=== PATIENT | male | born 1975 | race Caucasian/White ===

== ENCOUNTER 2021-12-21 16:08 | Inpatient (IN) | payer OTHER ==
[2021-12-21 17:09] VITALS: BMI 29.7
[2021-12-21] MEDS ORDERED: IBUPROFEN 600 MG TABLET (FP) PO PRN (19:34)
[2021-12-21] MEDS ORDERED: LOPERAMIDE HCL 2 MG CAPSULE PO PRN (19:34)
[2021-12-21] MEDS ORDERED: BENZOCAINE/MENTHOL (CHLORASEPTIC ) LOZENGE MM PRN (19:34)
[2021-12-21] MEDS ORDERED: ACETAMINOPHEN 325 MG TABLET (FP) PO PRN ×2 (19:34)
[2021-12-21] MEDS ORDERED: NALOXONE HCL (KLOXXADO) 8 MG SPRAY NS PRN (19:34)
[2021-12-21] MEDS ORDERED: ONDANSETRON *ODT* 4 MG TABLET SL PRN (19:34)
[2021-12-21] MEDS ORDERED: BISMUTH SUBSALICYLATE 524 MG/30 ML PO PRN (19:34)
[2021-12-21] MEDS ORDERED: MAGNESIUM HYDROX 2400MG/30ML ORAL SUSPENSION 30 ML CUP PO PRN (19:34)
[2021-12-21] MEDS ORDERED: MAGNESIUM CITRATE 300 ML BOTTLE PO PRN (19:34)
[2021-12-21] MEDS ORDERED: DICYCLOMINE HCL 10 MG CAPSULE PO PRN (19:34)
[2021-12-21] MEDS ORDERED: NICOTINE 10 MG CARTRIDGE (INHALER) IH PRN (19:34)
[2021-12-21] MEDS ORDERED: NICOTINE POLACRILEX 4 MG GUM BUC PRN (19:34)
[2021-12-21] MEDS ORDERED: IBUPROFEN 400 MG TABLET (FP) PO PRN (19:34)
[2021-12-21] MEDS ORDERED: MAG HYDROX/AL HYDROX/SIMETH 30 ML UNIT-DOSE CUP PO PRN (19:34)
[2021-12-21] MEDS: NICOTINE 21 MG/24 HOURS TOPICAL PATCH TD SCH (21:25)
[2021-12-21] MEDS: MELATONIN 5 MG TABLETS PO SCH (22:13)
[2021-12-21] MEDS: THIAMINE HCL 100 MG TABLET (FP) PO SCH (22:17)
[2021-12-22 10:23] LABS: ALBUMIN 3.1 g/dl (3.4-5.0); CALCIUM 8.5 mg/dL (8.5-10.1)
[2021-12-22 10:25] LABS: BLOOD UREA NITROGEN 12.2 mg/dL (7-18); CREATININE 0.7 mg/dL (0.55-1.3)
[2021-12-22 10:27] LABS: BILIRUBIN,TOTAL 0.3 mg/dL (0.2-1); TOT PROT 6.3 g/dl (6.4-8.2)
[2021-12-22 10:33] LABS: HEMATOCRIT 36.6 % (35.4-49); HEMOGLOBIN 12.2 GM/dL (11.7-16.9); MCH 29.7 pg (25.7-33.7); MCHC 33.3 g/dl (32.0-35.9); MEAN CELL VOLUME 89.1 fl (80-96); MEAN PLT VOLUME 10.8 fl (7.5-11.1); PLATELET COUNT 227 10^3/uL (134-434); RDW 14.2 % (11.9-15.9); WHITE BLOOD COUNT 7.7 K/mm3 (4.0-10.0)
[2021-12-22] MEDS: PRENATAL VITAMINS W/ FOLIC ACID TABLET (FP) PO SCH (10:40)
[2021-12-22] MEDS: NICOTINE 21 MG/24 HOURS TOPICAL PATCH TD SCH (10:40)
[2021-12-22 11:17] LABS: HIV INTERPRETATION NEGATIVE (NEGATIVE)
[2021-12-22] MEDS: MELATONIN 5 MG TABLETS PO SCH (22:27)
[2021-12-22] MEDS: THIAMINE HCL 100 MG TABLET (FP) PO SCH (22:27)
[2021-12-22] MEDS: hydrOXYzine PAMOATE 25 MG CAPSULE (FP) PO PRN (22:27)
[2021-12-22] MEDS: METHOCARBAMOL 500 MG TABLET PO PRN (22:27)
[2021-12-23] MEDS: hydrOXYzine PAMOATE 25 MG CAPSULE (FP) PO PRN (01:30)
[2021-12-23] MEDS ORDERED: methaDONE HCL 10 MG TABLET PO ONE (04:09)
[2021-12-23] MEDS ORDERED: cloNIDine HCL 0.1 MG TABLET PO PRN (06:36)
[2021-12-23] MEDS: AMOX TR/POT CLAV 875MG/125MG TABLETS (FP) PO SCH ×2 (08:00→18:07)
[2021-12-23] MEDS: NICOTINE 21 MG/24 HOURS TOPICAL PATCH TD SCH (10:20)
[2021-12-23] MEDS: PRENATAL VITAMINS W/ FOLIC ACID TABLET (FP) PO SCH (10:20)
[2021-12-23] MEDS: METHOCARBAMOL 500 MG TABLET PO PRN (10:21)
[2021-12-23] MEDS: diazePAM 5 MG TABLET PO PRN ×2 (10:21→22:52)
[2021-12-23] MEDS: MELATONIN 5 MG TABLETS PO SCH (22:51)
[2021-12-23] MEDS: THIAMINE HCL 100 MG TABLET (FP) PO SCH (22:51)
[2021-12-24] MEDS: AMOX TR/POT CLAV 875MG/125MG TABLETS (FP) PO SCH ×2 (07:13→17:34)
[2021-12-24] MEDS ORDERED: methaDONE HCL 10 MG TABLET (FOR DETOX USE ONLY) PO ONE (10:00)
[2021-12-24] MEDS: PRENATAL VITAMINS W/ FOLIC ACID TABLET (FP) PO SCH (11:21)
[2021-12-24] MEDS: METHOCARBAMOL 500 MG TABLET PO PRN (11:24)
[2021-12-24] MEDS: NICOTINE 21 MG/24 HOURS TOPICAL PATCH TD SCH (11:25)
[2021-12-24] MEDS: MELATONIN 5 MG TABLETS PO SCH (22:36)
[2021-12-24] MEDS: THIAMINE HCL 100 MG TABLET (FP) PO SCH (22:36)
[2021-12-25] MEDS: AMOX TR/POT CLAV 875MG/125MG TABLETS (FP) PO SCH (07:11)
[2021-12-25 09:32] VITALS: BP 130/82; PULSE 74; RESP 17; TEMP 97.5
[2021-12-25] MEDS ORDERED: methaDONE HCL 10 MG TABLET (FOR DETOX USE ONLY) PO ONE (10:00)
[2021-12-25] MEDS: NICOTINE 21 MG/24 HOURS TOPICAL PATCH TD SCH (10:16)
[2021-12-25] MEDS: PRENATAL VITAMINS W/ FOLIC ACID TABLET (FP) PO SCH (10:16)
[2021-12-27] MEDS ORDERED: methaDONE HCL 10 MG TABLET (FOR DETOX USE ONLY) PO ONE (10:00)
== END 2021-12-25 11:05 | disposition home or self-care (01) | DRG 773 ==
LOC: YASAS 16:08 → Y3N 20:09 → Y6N 20:15
PROVIDERS: ADMIT Allergy & Immunology; ATTEND Surgery
PROC: HZ2ZZZZ Detoxification Services for Substance Abuse Treatment (ICD-10-PCS; principal; 2021-12-21)
DX: F11.23 Opioid dependence with withdrawal (principal); F14.20 Cocaine dependence, uncomplicated; F12.20 Cannabis dependence, uncomplicated; F17.210 Nicotine dependence, cigarettes, uncomplicated; F19.282 Other psychoactive substance dependence with psychoactive substance-induced sleep disorder; R60.0 Localized edema; Y04.0XXA Assault by unarmed brawl or fight, initial encounter; Y93.89 Activity, other specified; Y92.230 Patient room in hospital as the place of occurrence of the external cause; Z56.0 Unemployment, unspecified
CPT/HCPCS: 36415; 80053; 85027; 86780; 87389; 93005; 93010; C9803-CS; U0003; U0005